=== PATIENT | male | born 1945 | race Caucasian/White ===

== ENCOUNTER 2022-06-01 14:43 | Outpatient (CLI) | payer MEDICARE | END 2022-06-01 14:44 | disposition home or self-care (01) | LOC: RAD-FRANK 14:43 | PROVIDERS: ATTEND Nurse Practitioner Family | DX: S39.012A Strain of muscle, fascia and tendon of lower back, initial encounter (principal); M47.816 Spondylosis without myelopathy or radiculopathy, lumbar region | CPT/HCPCS: 72100 ==

== ENCOUNTER 2022-10-04 10:07 | Outpatient (CLI) | payer OTHER | END 2022-10-04 10:08 | disposition home or self-care (01) | LOC: RAD-FRANK 10:07 | PROVIDERS: ATTEND Nurse Practitioner Family | DX: M25.561 Pain in right knee (principal); M17.11 Unilateral primary osteoarthritis, right knee ==

== ENCOUNTER 2022-10-21 09:39 | Outpatient (CLI) | payer OTHER, MEDICAID | END 2022-10-21 09:40 | disposition home or self-care (01) | LOC: BICMRI 09:39 | PROVIDERS: ATTEND Orthopaedic Surgery | DX: M17.11 Unilateral primary osteoarthritis, right knee (principal); S83.241A Other tear of medial meniscus, current injury, right knee, initial encounter; M25.461 Effusion, right knee; M22.41 Chondromalacia patellae, right knee ==

== ENCOUNTER 2024-10-14 09:21 | Observation (INO) | payer OTHER, MEDICAID ==
[2024-10-14] MEDS ORDERED: Acetaminophen 500 MG TAB ONE (09:48)
[2024-10-14 10:05] LABS: #Basophils 0.04 10x3/uL (0.0-0.2); #Eosinophils Less than 0.03 10x3/uL (0.0-0.7); #Monocytes 0.37 10x3/uL (0.11-0.59); #Neutrophils 5.64 10x3/uL (1.40-6.50); %Basophils 0.6 % (0.0-1.0); %Eosinophils 0.3 % (0.0-10.0); %Lymphocytes 12.8 % (21.0-51.0); %Monocytes 5.3 % (0.0-10.0); %Neutrophils 80.7 % (42.0-75.0); Hematocrit 28.3 % (42.0-52.0); Hemoglobin 9.8 g/dL (14.0-18.0); Mean Corpuscular Hemoglobin 34.4 pg (27.0-31.0); Mean Corpuscular Volume 99.3 fL (78.0-98.0); Platelet Count 139 10x3/uL (130-400); Red Blood Cell (RBC) Count 2.85 mill/uL (4.70-6.10); White Blood Cell (WBC) Count 6.98 10x3/uL (4.8-10.8)
[2024-10-14 10:21] LABS: ALT (SGPT) 12 U/L (Less than 45); AST (SGOT) 18 U/L (11-34); Albumin 3.7 g/dL (3.1-4.5); Alkaline Phosphatase 88 U/L (40-110); Anion Gap 12 mmol/L (10-20); BUN (Urea Nitrogen) 15 mg/dL (8.4-25.7); Bilirubin, Total 1.2 mg/dL (0.3-1.2); Calc. Creatinine Clearance 0 mL/min (70-130); Calcium 9.9 mg/dL (7.8-10.44); Carbon Dioxide 25 mmol/L (23-31); Chloride 104 mmol/L (98-107); Globulin 3.0 g/dL (2.4-3.5); Glucose 137 mg/dL (83-110); Potassium 3.4 mmol/L (3.5-5.1); Sodium 138 mmol/L (136-145); Uric Acid 2.0 mg/dL (3.7-7.7)
[2024-10-14] MEDS ORDERED: Ketorolac Tromethamine 30 MG (1 mL) VIAL ONE (11:10)
[2024-10-14 11:23] LABS: INR-International Normal Ratio 1.1; Prothrombin Time 14.8 sec (12.0-14.7)
[2024-10-14 11:24] LABS: PTT 32.4 sec (22.9-36.1)
[2024-10-14] MEDS ORDERED: predniSONE 20 MG TAB ONE (13:00)
[2024-10-14] MEDS ORDERED: Senokot S 8.6-50 MG TAB PO PRN (15:41)
[2024-10-14] MEDS ORDERED: Electrolyte Replacement Protocol 1 EACH FS SCH (15:41)
[2024-10-14] MEDS ORDERED: Ondansetron PF 4 MG/2 ML Vial IVP PRN (15:41)
[2024-10-14] MEDS ORDERED: Melatonin 3 MG TAB PO PRN (15:41)
[2024-10-14] MEDS: Colchicine 0.6 MG TAB PO SCH ×2 (16:21→17:24)
[2024-10-14] MEDS: Acetaminophen 325 MG TAB PO SCH (16:22)
[2024-10-15 05:15] LABS: #Basophils Less than 0.03 10x3/uL (0.0-0.2); #Eosinophils Less than 0.03 10x3/uL (0.0-0.7); #Monocytes 0.17 10x3/uL (0.11-0.59); #Neutrophils 4.57 10x3/uL (1.40-6.50); %Basophils 0.0 % (0.0-1.0); %Eosinophils 0.0 % (0.0-10.0); %Lymphocytes 10.0 % (21.0-51.0); %Monocytes 3.2 % (0.0-10.0); %Neutrophils 86.2 % (42.0-75.0); Hematocrit 26.5 % (42.0-52.0); Hemoglobin 9.3 g/dL (14.0-18.0); Mean Corpuscular Hemoglobin 34.4 pg (27.0-31.0); Mean Corpuscular Volume 98.1 fL (78.0-98.0); Platelet Count 129 10x3/uL (130-400); Red Blood Cell (RBC) Count 2.70 mill/uL (4.70-6.10); White Blood Cell (WBC) Count 5.30 10x3/uL (4.8-10.8)
[2024-10-15 05:19] LABS: ALT (SGPT) 11 U/L (Less than 45); AST (SGOT) 16 U/L (11-34); Albumin 3.4 g/dL (3.1-4.5); Alkaline Phosphatase 78 U/L (40-110); Anion Gap 12 mmol/L (10-20); BUN (Urea Nitrogen) 26 mg/dL (8.4-25.7); Bilirubin, Total 0.7 mg/dL (0.3-1.2); Calc. Creatinine Clearance 51 mL/min (70-130); Calcium 9.2 mg/dL (7.8-10.44); Carbon Dioxide 23 mmol/L (23-31); Chloride 106 mmol/L (98-107); Globulin 2.5 g/dL (2.4-3.5); Glucose 139 mg/dL (83-110); Potassium 4.2 mmol/L (3.5-5.1); Sodium 137 mmol/L (136-145)
[2024-10-15] MEDS ORDERED: hydrALAZINE 20 MG/ML VIAL SLOW IVP PRN (08:13)
[2024-10-15] MEDS: Enoxaparin 40 MG (0.4 mL) SYRINGE SC SCH (09:10)
[2024-10-15] MEDS: Colchicine 0.6 MG TAB PO SCH (09:16)
[2024-10-15 11:22] VITALS: BP 161/71; TEMP 98
== END 2024-10-15 12:30 | disposition home or self-care (01) ==
LOC: ERS 09:21 → 2NO 14:08
PROVIDERS: ADMIT Internal Medicine; ATTEND Internal Medicine
DX: M10.9 Gout, unspecified (principal); I12.9 Hypertensive chronic kidney disease with stage 1 through stage 4 chronic kidney disease, or unspecified chronic kidney disease; N18.9 Chronic kidney disease, unspecified; D63.1 Anemia in chronic kidney disease; E03.9 Hypothyroidism, unspecified; Z87.891 Personal history of nicotine dependence; Z90.49 Acquired absence of other specified parts of digestive tract
CPT/HCPCS: 71045; 73630 ×2; 80053; 83605; 83880; 84484 ×2; 84550; 85025; 85610; 85730; 86141; 93005; 93970; 97116; J1650; J1885; 36415; 84443; 96372; 96374; G0378; J7512

== ENCOUNTER 2025-01-12 13:20 | Inpatient (IN) | payer OTHER ==
[~2025-01-12 13:20] MED LIST: Iopamidol-370 76% 500 ML MDV (1 ML CHARGE) ONE
[2025-01-12] MEDS ORDERED: dilTIAZem 25 MG/5 ML VIAL ONE (14:18)
[2025-01-12 14:31] LABS: #Basophils Less than 0.03 10x3/uL (0.0-0.2); #Eosinophils 0.09 10x3/uL (0.0-0.7); #Monocytes 0.25 10x3/uL (0.11-0.59); #Neutrophils 2.88 10x3/uL (1.40-6.50); %Basophils 0.2 % (0.0-1.0); %Eosinophils 2.1 % (0.0-10.0); %Lymphocytes 23.5 % (21.0-51.0); %Monocytes 5.9 % (0.0-10.0); %Neutrophils 67.6 % (42.0-75.0); Hematocrit 24.1 % (42.0-52.0); Hemoglobin 8.7 g/dL (14.0-18.0); Mean Corpuscular Hemoglobin 34.8 pg (27.0-31.0); Mean Corpuscular Volume 96.4 fL (78.0-98.0); Platelet Count 93 10x3/uL (130-400); Red Blood Cell (RBC) Count 2.50 mill/uL (4.70-6.10); White Blood Cell (WBC) Count 4.26 10x3/uL (4.8-10.8)
[2025-01-12 14:41] LABS: INR-International Normal Ratio 1.2; PTT 31.4 sec (22.9-36.1); Prothrombin Time 15.0 sec (12.0-14.7)
[2025-01-12 14:57] LABS: ALT (SGPT) 14 U/L (Less than 45); AST (SGOT) 22 U/L (11-34); Albumin 3.6 g/dL (3.1-4.5); Alkaline Phosphatase 94 U/L (40-110); Anion Gap 15 mmol/L (10-20); BUN (Urea Nitrogen) 10 mg/dL (8.4-25.7); Bilirubin, Total 0.9 mg/dL (0.3-1.2); Calc. Creatinine Clearance 0 mL/min (70-130); Calcium 6.5 mg/dL (7.8-10.44); Carbon Dioxide 25 mmol/L (23-31); Chloride 104 mmol/L (98-107); Globulin 2.0 g/dL (2.4-3.5); Glucose 113 mg/dL (83-110); Magnesium Less than 0.7 mg/dL (1.6-2.6); Potassium 2.9 mmol/L (3.5-5.1); Sodium 141 mmol/L (136-145)
[2025-01-12] MEDS ORDERED: Magnesium 2 GM/50 ML BAG (IN WATER) ONE (15:08)
[2025-01-12] MEDS ORDERED: NS 0.9% w/ 40 MEQ KCL 1,000 ML IV SCH (16:00)
[2025-01-12] MEDS ORDERED: Acetaminophen 325 MG TAB PO PRN (18:28)
[2025-01-12] MEDS ORDERED: Ondansetron PF 4 MG/2 ML Vial IVP PRN (18:28)
[2025-01-12] MEDS ORDERED: Electrolyte Replacement Protocol 1 EACH FS SCH (18:30)
[2025-01-12] MEDS ORDERED: PHOS-NAK 1 PKT PACK PO PRN (19:00)
[2025-01-12] MEDS ORDERED: Potassium Chloride 20 MEQ in Premix 1 BAG IVPB PRN (19:00)
[2025-01-12] MEDS ORDERED: Magnesium Sulfate In Water 4 GM in Premix 1 BAG IVPB PRN (19:00)
[2025-01-12] MEDS: Apixaban 5 MG TAB PO SCH (20:38)
[2025-01-12] MEDS: Magnesium 2 GM/50 ML(in water) 2 GM in Premix 1 BAG IVPB SCH (20:39)
[2025-01-12] MEDS: Calcium Gluc 4.6 MEQ/10 ML (100 MG/ML) SLOW IVP SCH (22:13)
[2025-01-13 03:39] LABS: #Basophils Less than 0.03 10x3/uL (0.0-0.2); #Eosinophils 0.05 10x3/uL (0.0-0.7); #Monocytes 0.23 10x3/uL (0.11-0.59); #Neutrophils 3.76 10x3/uL (1.40-6.50); %Basophils 0.4 % (0.0-1.0); %Eosinophils 1.0 % (0.0-10.0); %Lymphocytes 19.8 % (21.0-51.0); %Monocytes 4.5 % (0.0-10.0); %Neutrophils 73.7 % (42.0-75.0); Hematocrit 23.3 % (42.0-52.0); Hemoglobin 8.1 g/dL (14.0-18.0); Mean Corpuscular Hemoglobin 34.8 pg (27.0-31.0); Mean Corpuscular Volume 100.0 fL (78.0-98.0); Platelet Count 101 10x3/uL (130-400); Red Blood Cell (RBC) Count 2.33 mill/uL (4.70-6.10); White Blood Cell (WBC) Count 5.10 10x3/uL (4.8-10.8)
[2025-01-13 03:49] LABS: Anion Gap 18 mmol/L (10-20); BUN (Urea Nitrogen) 10 mg/dL (8.4-25.7); Calc. Creatinine Clearance 79 mL/min (70-130); Calcium 7.0 mg/dL (7.8-10.44); Carbon Dioxide 24 mmol/L (23-31); Chloride 104 mmol/L (98-107); Glucose 119 mg/dL (83-110); Potassium 3.3 mmol/L (3.5-5.1); Sodium 143 mmol/L (136-145)
[2025-01-13 09:51] LABS: Potassium 3.7 mmol/L (3.5-5.1)
[2025-01-13 12:38] LABS: Magnesium 1.7 mg/dL (1.6-2.6)
[2025-01-13 16:17] LABS: Free T4 (Free Thyroxine) 1.18 ng/dL (0.70-1.48)
[2025-01-13] MEDS: Allopurinol 300 MG TAB PO SCH (20:15)
[2025-01-13] MEDS: Melatonin 3 MG TAB PO PRN (20:15)
[2025-01-13] MEDS: Colchicine 0.6 MG TAB PO SCH (20:15)
[2025-01-13] MEDS: Minoxidil 2.5 MG TAB PO SCH (20:15)
[2025-01-13] MEDS ORDERED: Apixaban 5 MG TAB PO SCH (21:00)
[2025-01-14 05:07] LABS: #Basophils Less than 0.03 10x3/uL (0.0-0.2); #Eosinophils 0.09 10x3/uL (0.0-0.7); #Monocytes 0.24 10x3/uL (0.11-0.59); #Neutrophils 4.11 10x3/uL (1.40-6.50); %Basophils 0.2 % (0.0-1.0); %Eosinophils 1.6 % (0.0-10.0); %Lymphocytes 20.4 % (21.0-51.0); %Monocytes 4.3 % (0.0-10.0); %Neutrophils 73.0 % (42.0-75.0); Hematocrit 25.5 % (42.0-52.0); Hemoglobin 8.6 g/dL (14.0-18.0); Mean Corpuscular Hemoglobin 34.1 pg (27.0-31.0); Mean Corpuscular Volume 101.2 fL (78.0-98.0); Platelet Count 106 10x3/uL (130-400); Red Blood Cell (RBC) Count 2.52 mill/uL (4.70-6.10); White Blood Cell (WBC) Count 5.63 10x3/uL (4.8-10.8)
[2025-01-14 05:16] LABS: Anion Gap 14 mmol/L (10-20); BUN (Urea Nitrogen) 14 mg/dL (8.4-25.7); Calc. Creatinine Clearance 74 mL/min (70-130); Calcium 7.8 mg/dL (7.8-10.44); Carbon Dioxide 24 mmol/L (23-31); Chloride 103 mmol/L (98-107); Glucose 112 mg/dL (83-110); Potassium 3.8 mmol/L (3.5-5.1); Sodium 137 mmol/L (136-145)
[2025-01-14] MEDS: Sertraline 100 MG TAB PO SCH (08:35)
[2025-01-14] MEDS: Pantoprazole 40 MG DR.TAB PO SCH (08:36)
[2025-01-14] MEDS: Lisinopril 20 MG TAB PO SCH (08:36)
[2025-01-14 10:41] VITALS: BP 122/79; TEMP 97.6
[2025-01-15] MEDS ORDERED: FLU (Fluad Triv) 25-26 (65UP)PF 45 MCG/0.5 ML Syringe IM ONE (09:00)
== END 2025-01-14 15:45 | disposition home or self-care (01) | DRG 310 ==
LOC: ERS 13:20 → PCU 18:27
PROVIDERS: ADMIT Family Medicine; ATTEND Family Medicine
DX: I48.0 Paroxysmal atrial fibrillation (principal); E87.6 Hypokalemia; E78.5 Hyperlipidemia, unspecified; I12.9 Hypertensive chronic kidney disease with stage 1 through stage 4 chronic kidney disease, or unspecified chronic kidney disease; N18.9 Chronic kidney disease, unspecified; E03.9 Hypothyroidism, unspecified; K21.9 Gastro-esophageal reflux disease without esophagitis; E83.51 Hypocalcemia; M10.9 Gout, unspecified; E11.22 Type 2 diabetes mellitus with diabetic chronic kidney disease; M48.061 Spinal stenosis, lumbar region without neurogenic claudication; G89.4 Chronic pain syndrome; Z79.01 Long term (current) use of anticoagulants; Z79.899 Other long term (current) drug therapy; D63.1 Anemia in chronic kidney disease; Z79.890 Hormone replacement therapy; Z87.891 Personal history of nicotine dependence; E83.42 Hypomagnesemia; Z90.49 Acquired absence of other specified parts of digestive tract; D69.6 Thrombocytopenia, unspecified; D53.9 Nutritional anemia, unspecified
CPT/HCPCS: 0042T; 36415; 36416; 70450; 70496; 70498; 71045; 72148; 80048; 80053; 83735; 83880; 84439; 84443; 84481; 84484; 85025; 85610; 85730; 93005; 93306; 94760; 96365; 96366; 96375; 96376; J0612; J3475; J3480; Q9967